=== PATIENT | male | born 1965 | race Caucasian/White ===

== ENCOUNTER 2020-10-06 10:37 | Outpatient (CLI) | payer BC, SELFPAY ==
[2020-10-06 11:40] LABS: Abs Immature Grans 0.07 10^3/uL (0.0-0.06); Absolute Basophil Count 0.02 10^3/uL (0.0-0.2); Absolute Lymphocyte Count 1.72 10^3/uL (1.2-3.4); Absolute Monocyte Count 0.65 10^3/uL (0.1-0.8); Absolute Neutrophil Count 3.28 10^3/uL (1.2-6.7); Basophils % 0.3; Eosinophils % 3.4; HCT 40.3 % (40.0-50.0); HGB 13.5 g/dL (13.5-17.5); Immature Grans % 1.2; MCH 30.2 pg (27.0-33.0); MCHC 33.5 % (32.0-36.0); MCV 90.2 fL (80-95); MPV 8.8 fL (8.0-11.0); Monocytes % 10.9; Neutrophils % 55.2; Nucleated RBC 0 %; Platelet Count 165 10^3/uL (130-400); RBC 4.47 10^6/uL (4.36-5.78); RDW 12.8 % (11.8-14.1); RDW-SD 40.2 fL; WBC 5.94 10^3/uL (4.4-10.8)
[2020-10-06 11:56] LABS: ALT 328 U/L (16-63); AST 50 U/L (15-37); Albumin 3.4 g/dL (3.4-5.0); Alkaline Phosphatase 88 U/L (46-116); Anion Gap 7.9 mmol/L (3-11); BUN 9 mg/dL (7-18); Bilirubin, Total 0.4 mg/dL (0.2-1.0); CO2 28.1 mmol/L (21.0-32.0); Calcium 8.9 mg/dL (8.5-10.1); Chloride 106 mmol/L (98-107); Glucose 100 mg/dL (74-106); Potassium 4.2 mmol/L (3.5-5.1); Sodium 142 mmol/L (136-145); Total Protein 7.5 g/dL (6.4-8.2)
== END 2020-10-06 10:38 | disposition home or self-care (01) ==
PROVIDERS: PCP Family Medicine; Visit Provider Internal Medicine Hematology & Oncology
DX: C85.89 Other specified types of non-Hodgkin lymphoma, extranodal and solid organ sites (principal)
CPT/HCPCS: 36415; 80053; 85025

== ENCOUNTER 2021-04-07 02:22 | Outpatient (RCR) | payer BC, SELFPAY ==
[2021-04-07 12:30] LABS: Abs Immature Grans 0.02 10^3/uL (0.0-0.06); Absolute Basophil Count 0.04 10^3/uL (0.0-0.2); Absolute Lymphocyte Count 2.25 10^3/uL (1.2-3.4); Absolute Monocyte Count 0.75 10^3/uL (0.1-0.8); Absolute Neutrophil Count 2.36 10^3/uL (1.2-6.7); Basophils % 0.7; HCT 34.1 % (40.0-50.0); HGB 11.3 g/dL (13.5-17.5); Immature Grans % 0.3; Lymphocytes % 37.4; MCH 29.7 pg (27.0-33.0); MCHC 33.1 % (32.0-36.0); MCV 89.5 fL (80-95); MPV 8.4 fL (8.0-11.0); Monocytes % 12.5; Neutrophils % 39.1; Nucleated RBC 0 %; Platelet Count 169 10^3/uL (130-400); RBC 3.81 10^6/uL (4.36-5.78); RDW 17.2 % (11.8-14.1); RDW-SD 55.3 fL; WBC 6.02 10^3/uL (4.4-10.8)
[2021-04-07] MEDS: Normal Saline Flush 10 ML SYR IVP (12:34)
[2021-04-07 12:42] LABS: ALT 23 U/L (16-63); AST 31 U/L (15-37); Albumin 3.6 g/dL (3.4-5.0); Alkaline Phosphatase 66 U/L (46-116); Anion Gap 8.9 mmol/L (3-11); BUN 11 mg/dL (7-18); Bilirubin, Total 0.3 mg/dL (0.2-1.0); CO2 28.1 mmol/L (21.0-32.0); CREATININE 0.9 mg/dL (0.70-1.30); Calcium 8.9 mg/dL (8.5-10.1); Chloride 106 mmol/L (98-107); Glucose 99 mg/dL (74-106); Magnesium 1.4 mg/dL (1.8-2.4); Potassium 4.1 mmol/L (3.5-5.1); Sodium 143 mmol/L (136-145); Total Protein 6.8 g/dL (6.4-8.2)
== END 2021-04-19 23:59 | disposition home or self-care (01) ==
LOC: INF 02:22
PROVIDERS: PCP Family Medicine; Visit Provider Internal Medicine Hematology & Oncology
DX: Z94.81 Bone marrow transplant status (principal); C85.89 Other specified types of non-Hodgkin lymphoma, extranodal and solid organ sites; Z45.2 Encounter for adjustment and management of vascular access device
CPT/HCPCS: 36591; 80053; 83735; 85025

== ENCOUNTER 2021-05-18 02:47 | Outpatient (RCR) | payer BC, SELFPAY ==
[2021-04-27 09:36] LABS: Abs Immature Grans 0.02 10^3/uL (0.0-0.06); Absolute Basophil Count 0.04 10^3/uL (0.0-0.2); Absolute Eosinophil Count 0.19 10^3/uL (0.0-0.7); Absolute Lymphocyte Count 2.06 10^3/uL (1.2-3.4); Absolute Monocyte Count 0.62 10^3/uL (0.1-0.8); Absolute Neutrophil Count 3.54 10^3/uL (1.2-6.7); Basophils % 0.6; Eosinophils % 2.9; HCT 34.4 % (40.0-50.0); HGB 11.9 g/dL (13.5-17.5); Immature Grans % 0.3; Lymphocytes % 31.8; MCH 31.7 pg (27.0-33.0); MCHC 34.6 % (32.0-36.0); MCV 91.7 fL (80-95); MPV 8.8 fL (8.0-11.0); Monocytes % 9.6; Neutrophils % 54.8; Nucleated RBC 0 %; Platelet Count 174 10^3/uL (130-400); RBC 3.75 10^6/uL (4.36-5.78); RDW 14.3 % (11.8-14.1); WBC 6.47 10^3/uL (4.4-10.8)
[2021-04-27 09:48] LABS: Magnesium 1.6 mg/dL (1.8-2.4)
[2021-04-27 09:52] LABS: ALT 21 U/L (16-63); AST 19 U/L (15-37); Albumin 3.8 g/dL (3.4-5.0); Alkaline Phosphatase 76 U/L (46-116); Anion Gap 10.6 mmol/L (3-11); BUN 20 mg/dL (7-18); Bilirubin, Total 0.3 mg/dL (0.2-1.0); CO2 25.4 mmol/L (21.0-32.0); CREATININE 0.9 mg/dL (0.70-1.30); Chloride 104 mmol/L (98-107); Glucose 121 mg/dL (74-106); Potassium 4.1 mmol/L (3.5-5.1); Sodium 140 mmol/L (136-145); Total Protein 6.9 g/dL (6.4-8.2)
[2021-04-27] MEDS: Normal Saline Flush 10 ML SYR IVP (11:51)
== END 2021-05-19 23:59 | disposition home or self-care (01) ==
LOC: INF 02:47
PROVIDERS: PCP Family Medicine; Visit Provider Internal Medicine Hematology & Oncology
DX: C85.89 Other specified types of non-Hodgkin lymphoma, extranodal and solid organ sites (principal)
CPT/HCPCS: 36415; 80053; 83735; 85025

== ENCOUNTER 2021-05-25 10:36 | Outpatient (RCR) | payer BC, SELFPAY ==
[2021-05-25 10:51] LABS: Abs Immature Grans 0.01 10^3/uL (0.0-0.06); Absolute Basophil Count 0.02 10^3/uL (0.0-0.2); Absolute Eosinophil Count 0.09 10^3/uL (0.0-0.7); Absolute Lymphocyte Count 1.21 10^3/uL (1.2-3.4); Absolute Monocyte Count 0.44 10^3/uL (0.1-0.8); Absolute Neutrophil Count 1.97 10^3/uL (1.2-6.7); Basophils % 0.5; Eosinophils % 2.4; HGB 11.8 g/dL (13.5-17.5); Immature Grans % 0.3; Lymphocytes % 32.4; MCHC 33.7 % (32.0-36.0); MCV 91.9 fL (80-95); MPV 8.3 fL (8.0-11.0); Monocytes % 11.8; Neutrophils % 52.6; Nucleated RBC 0 %; Platelet Count 139 10^3/uL (130-400); RBC 3.81 10^6/uL (4.36-5.78); RDW 12.1 % (11.8-14.1); RDW-SD 40.7 fL; WBC 3.74 10^3/uL (4.4-10.8)
[2021-05-25 11:11] LABS: ALT 29 U/L (16-63); AST 27 U/L (15-37); Albumin 3.8 g/dL (3.4-5.0); Alkaline Phosphatase 49 U/L (46-116); Anion Gap 6.8 mmol/L (3-11); BUN 21 mg/dL (7-18); Bilirubin, Total 0.3 mg/dL (0.2-1.0); CO2 28.2 mmol/L (21.0-32.0); Calcium 8.5 mg/dL (8.5-10.1); Chloride 106 mmol/L (98-107); Glucose 137 mg/dL (74-106); Magnesium 1.7 mg/dL (1.8-2.4); PHOSPHORUS 4.3 mg/dL (2.6-4.7); Potassium 4.1 mmol/L (3.5-5.1); Sodium 141 mmol/L (136-145); Total Protein 6.7 g/dL (6.4-8.2)
[2021-05-25] MEDS: Heparin 500 UNITS/5 ML SYRINGE IVP (11:13)
[2021-05-25] MEDS: Normal Saline Flush 10 ML SYR IVP (11:14)
== END 2021-06-19 23:59 | disposition home or self-care (01) ==
LOC: INF 10:36
PROVIDERS: PCP Family Medicine; Visit Provider Internal Medicine Hematology & Oncology
DX: C85.89 Other specified types of non-Hodgkin lymphoma, extranodal and solid organ sites (principal); Z45.2 Encounter for adjustment and management of vascular access device
CPT/HCPCS: 36591; 80053; 83735; 84100; 85025

== ENCOUNTER 2022-02-16 16:19 | Outpatient (REF) | payer BC, SELFPAY ==
[2022-02-17 18:50] LABS: PSA, Screening 1.3 ng/mL (<=3.5)
== END 2022-02-16 16:20 | disposition home or self-care (01) ==
LOC: LBN 16:19
PROVIDERS: PCP Family Medicine; Visit Provider Nurse Practitioner Gerontology
DX: R39.89 Other symptoms and signs involving the genitourinary system (principal); Z12.5 Encounter for screening for malignant neoplasm of prostate
CPT/HCPCS: 84153

== ENCOUNTER → 2023-09-13 02:55 | Outpatient (CLI) | payer BC, SELFPAY ==
--- NOTE | 2023-09-13 | DI.MRI_ITS ---
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 TECHNIQUE: Multiplanar multisequence MRI of the brain was performed. CONTRAST MATERIAL: IV Contrast: 17 ML of Dotarem contrast administered. MR MRI BRAIN WWO from 05/07/2023 FINDINGS: VENTRICLES AND EXTRA AXIAL SPACES: Normal in size and morphology for the patient's age. HEMORRHAGE: None. CEREBRAL PARENCHYMA: No focus of restricted diffusion to suggest acute infarct. No space-occupying le wan identified. There are stable areas of hyperintense signal in the white matter on the T2 and FLAI R images. There is no mass effect. The area of decreased signal on the gradient echo images in the le ft parietal lobe is unchanged. This likely reflects remote bleeding. MIDLINE SHIFT: None. BRAINSTEM/CEREBELLUM: Normal. CALVARIUM: Normal. ENHANCEMENT: No suspicious enhancement identified. VISUALIZED PARANASAL SINUSES/MASTOIDS: There is again seen mild mucosal thickening in the maxillary s inuses left greater than right. There is opacification of a few ethmoid air cells. The remaining vi sualized paranasal sinuses and mastoid air cells are clear. OTHER FINDINGS: None. IMPRESSION: No change in appearance of the brain compared to the examination from 05/07/2023. Stable areas of hype rintense signal seen in the white matter. No enhancing lesions are identified. DATA REPOSITORY:
[2023-09-13] MEDS: Normal Saline Flush 10 ML SYR IVP (13:31)
[2023-09-13] MEDS: Gadoterate meglumine 20 ML SYRINGE 17 ML IVP (13:32)
== END ==
PROVIDERS: PCP Family Medicine; Visit Provider Internal Medicine
DX: C85.89 Other specified types of non-Hodgkin lymphoma, extranodal and solid organ sites (principal)
CPT/HCPCS: 70553; 82565

== ENCOUNTER 2025-05-20 14:38 | Outpatient (REF) | payer BC, SELFPAY ==
[2025-05-21 12:15] LABS: Chlamydia Result Negative (Negative); GC Result Negative (Negative)
== END 2025-05-20 14:39 | disposition home or self-care (01) ==
LOC: LBN 14:38
PROVIDERS: PCP Family Medicine; Visit Provider Nurse Practitioner Gerontology
DX: Z72.51 High risk heterosexual behavior (principal)
CPT/HCPCS: 87491; 87591